=== PATIENT | male | born 1960 | race American Indian/Alaskan Native ===

== ENCOUNTER 2017-01-22 21:23 | Emergency (ER) | payer SELFPAY ==
[2017-01-22] MEDS ORDERED: CATAPRES PO ONE (21:45)
[2017-01-22 22:06] LABS: Hemoglobin 13.5 gm/dl (11.8-15.2); Mean Corpuscular HGB Conc 32 % (32-34); Mean Corpuscular Hemoglobin 29 pg (28-32); Mean Corpuscular Volume 91 fl (84-94); Platelet Count 201 K/mm3 (140-440); Red Blood Count 4.62 M/mm3 (3.65-5.03); Red Cell Distribution Width 14.1 % (13.2-15.2); White Blood Count 6.7 K/mm3 (4.5-11.0)
[2017-01-22 22:16] LABS: INR 1.04 (0.87-1.13)
[2017-01-22 22:17] LABS: Partial Thromboplastin Time 27.5 Sec. (24.2-36.6)
[2017-01-22 22:28] LABS: Alanine Aminotransferase 20 units/L (7-56); Albumin 4.2 g/dL (3.9-5); Albumin/Globulin Ratio 1.2 %; Alkaline Phosphatase 54 units/L (35-129); BUN/Creatinine Ratio 14.16; Blood Urea Nitrogen 17 mg/dL (9-20); Calcium 9.9 mg/dL (8.4-10.2); Carbon Dioxide 28 mmol/L (22-30); Glucose 89 mg/dL (75-100); Total Protein 7.8 g/dL (6.3-8.2)
[2017-01-22 22:29] LABS: Anion Gap 17 mmol/L; Chloride 102.1 mmol/L (98-107); Potassium 3.9 mmol/L (3.6-5.0); Sodium 143 mmol/L (137-145)
[2017-01-23 02:08] VITALS: BP 148/86
--- NOTE | 2017-01-23 03:28 | Emergency Department Report ---
HPI - General Chief Complaint: Extremity Injury, Lower Time Seen by Provider: 01/23/17 03:13 - HPI HPI: Room 18 The patient is a 56-year-old male presenting with a chief complaint of anterior thigh numbness bilaterally. The patient states he was working on floors using kneepads and was on his knees extended period time today. Patient states today at noon he noticed numbness in both legs at the anterior thighs. Patient denied ever having dysarthria or dysphagia. Patient denies paresthesia elsewhere in his body. Patient denies ever having weakness. Patient denies abdominal pain Location: Bilateral thighs Duration:, Since since noon Quality: Numbness Severity: Moderate Modifying factors: [see above] Context: [see above] Mode of transportation: Unknown ED Past Medical Hx - Past Medical History Previous Medical History?: Yes Additional medical history: DVT right lower extremity approximately 2013 no longer on anticoagulation. - Surgical History Past Surgical History?: No - Family History Family history: no significant - Social History Smoking Status: Never Smoker Substance Use Type: None (denies illicit drug use) ED Review of Systems ROS: Stated complaint: NUMBNESS IN THIGH Other details as noted in HPI Comment: All other systems reviewed and negative Constitutional: denies: chills, fever Eyes: denies: eye pain, eye discharge, vision change ENT: denies: ear pain, throat pain Respiratory: denies: cough, shortness of breath, wheezing Cardiovascular: denies: chest pain, palpitations Endocrine: no symptoms reported Gastrointestinal: denies: abdominal pain, nausea, diarrhea Genitourinary: denies: urgency, dysuria Musculoskeletal: denies: back pain, joint swelling, arthralgia Skin: denies: rash, lesions Neurological: paresthesias. denies: weakness Psychiatric: denies: anxiety, depression Hematological/Lymphatic: denies: easy bleeding, easy bruising Physical Exam - Physical Exam Vital Signs: Vital Signs 01/22/17 01/23/17 01/23/17 21:31 02:07 02:11 Temperature 98.7 F Pulse Rate 62 52 L Respiratory 17 16 16 Rate Blood Pressure 185/114 Blood Pressure 148/86 [Left] O2 Sat by Pulse 99 100 100 Oximetry Physical Exam: GENERAL: The patient is well-developed well-nourished []. [] HEENT: Normocephalic. Atraumatic. Extraocular motions are intact. Patient has moist mucous membranes. NECK: Supple. Trachea midline CHEST/LUNGS: Clear to auscultation. There is no respiratory distress noted. 2 + DP bilaterally HEART/CARDIOVASCULAR: Regular. There is no tachycardia. There is no gallop rub or murmur. ABDOMEN: Abdomen is soft, nontender. Patient has normal bowel sounds. There is no abdominal distention. SKIN: There is no rash. There is no edema. There is no diaphoresis. NEURO: The patient is awake, alert, and oriented. The patient is cooperative. Cranial nerves II through XII grossly intact, no drift. [employer] 5+/5 bilaterally. Moves all extremities well. Normal sensation bilateral upper extremities. There is a focal region numbness of both anterior thighs approximately 14 cm in diameter and 30 cm in length. The patient has normal sensation all around outside of these regions. The patient has normal speech MUSCULOSKELETAL: There is no evidence of acute injury. ED Course Vital Signs 01/22/17 01/23/17 01/23/17 21:31 02:07 02:11 Temperature 98.7 F Pulse Rate 62 52 L Respiratory 17 16 16 Rate Blood Pressure 185/114 Blood Pressure 148/86 [Left] O2 Sat by Pulse 99 100 100 Oximetry ED Medical Decision Making - Lab Data Result diagrams: 01/22/17 21:54 01/22/17 21:54 Laboratory Tests 01/22/17 01/22/17 01/22/17 21:54 21:54 21:54 WBC 6.7 RBC 4.62 Hgb 13.5 Hct 42.0 MCV 91 MCH 29 MCHC 32 RDW 14.1 Plt Count 201 PT 13.5 INR 1.04 APTT 27.5 D-Dimer < 135.00 Sodium 143 Potassium 3.9 Chloride 102.1 Carbon Dioxide 28 Anion Gap 17 BUN 17 Creatinine 1.2 Estimated GFR > 60 BUN/Creatinine Ratio 14.16 Glucose 89 Calcium 9.9 Total Bilirubin 0.50 AST 25 ALT 20 Alkaline Phosphatase 54 Total Creatine Kinase Total Protein 7.8 Albumin 4.2 Albumin/Globulin Ratio 1.2 01/22/17 21:54 WBC RBC Hgb Hct MCV MCH MCHC RDW Plt Count PT INR APTT D-Dimer Sodium Potassium Chloride Carbon Dioxide Anion Gap BUN Creatinine Estimated GFR BUN/Creatinine Ratio Glucose Calcium Total Bilirubin AST ALT Alkaline Phosphatase Total Creatine Kinase 905 H Total Protein Albumin Albumin/Globulin Ratio - Differential Diagnosis DVTs, rhabdomyolysis, polymyositis, CVA Critical care attestation.: If time is entered above; I have spent that time in minutes in the direct care of this critically ill patient, excluding procedure time. ED Disposition Clinical Impression: Numbness of left anterior thigh, Numbness of right anterior thigh, Elevated CK Disposition: - TO HOME OR SELFCARE Is pt being admited?: No Does the pt Need Aspirin: No Condition: Stable Instructions: Neurapraxia (ED) Additional Instructions: Return to the emergency department immediately should you develop worsening symptoms, fever, inability to tolerate food or liquid or any other concerns. Referrals: [facility] [Outside] - 3-5 Days CARLOS AL MD [Staff Physician] - 3-5 Days (Dr. Al is a neurologist. Please follow up with him for further evaluation) JAVIER FITZGERALD MD [Staff Physician] - 3-5 Days (Dr. Fitzgerald is a primary physician. Please follow up with him to be established as a patient) Time of Disposition: 03:31
== END 2017-01-23 03:30 | disposition home or self-care (01) ==
LOC: ED 21:23
DX: R20.0 Anesthesia of skin (principal); R74.8 Abnormal levels of other serum enzymes
CPT/HCPCS: 36415; 80053; 82550; 85027; 85379; 85610; 85730; 99283

== ENCOUNTER 2019-05-08 12:01 | Emergency (ER) | payer SELFPAY | END 2019-05-08 13:14 | disposition home or self-care (01) | LOC: ED 12:01 ==

== ENCOUNTER 2020-11-03 10:29 | Emergency (ER) | payer SELFPAY ==
[2020-11-03] MEDS ORDERED: cloNIDine 0.1 MG TAB PO ONE (11:09)
--- NOTE | 2020-11-03 11:12 | Emergency Department Report ---
ED General Adult HPI - General Chief complaint: High BP Stated complaint: ELEVATED BLOOD PRESSURE Time Seen by Provider: 11/03/20 11:03 Source: patient Mode of arrival: Ambulatory Limitations: No Limitations - History of Present Illness Initial comments: Mr. Pastor is a 60 years old male with history of hypertension, noncompliant with his medication. Patient stated that he was taking amlodipine 5mg but he did not have any follow-up with his primary doctor since COVID-19 started. Patient stated that he has some dental work and found that his blood pressure was 175/92 and he was sent to the ER for further management. Patient stated that he is having mild headache and some dizziness but denied any weakness, numbness or tingling sensation. No bowel or bladder incontinence. Patient also denied any chest pain or shortness of breath. - Related Data Home Medications Medication Instructions Recorded Confirmed Last Taken amLODIPine 5 mg PO DAILY 11/03/20 11/03/20 1 Day Ago ~11/02/20 Previous Rx's Medication Instructions Recorded Last Taken Type amLODIPine 10 mg PO DAILY #30 tab 11/03/20 Unknown Rx Allergies Allergy/AdvReac Type Severity Reaction Status Date / Time No Known Allergies Allergy Verified 11/03/20 11:19 ED Review of Systems ROS: Stated complaint: ELEVATED BLOOD PRESSURE Other details as noted in HPI Comment: All other systems reviewed and negative Constitutional: denies: chills, fever Respiratory: denies: cough, shortness of breath, SOB with exertion Cardiovascular: denies: chest pain Gastrointestinal: denies: abdominal pain, nausea, vomiting Musculoskeletal: denies: back pain Neurological: headache. denies: weakness, numbness, paresthesias, confusion, abnormal gait ED Past Medical Hx - Past Medical History Previous Medical History?: Yes Hx Hypertension: Yes Additional medical history: DVT right lower extremity approximately 2013 no longer on anticoagulation. - Social History Smoking Status: Never Smoker Substance Use Type: None - Medications Home Medications: Home Medications Medication Instructions Recorded Confirmed Last Taken Type amLODIPine 5 mg PO DAILY 11/03/20 11/03/20 1 Day Ago History ~11/02/20 amLODIPine 10 mg PO DAILY #30 tab 11/03/20 Unknown Rx ED Physical Exam - General Limitations: No Limitations General appearance: alert, in no apparent distress - Head Head exam: Present: atraumatic, normocephalic, normal inspection - Eye Eye exam: Present: normal appearance, PERRL - ENT ENT exam: Present: normal exam, normal orophraynx, mucous membranes moist - Neck Neck exam: Present: normal inspection, full ROM. Absent: tenderness, meningismus - Respiratory Respiratory exam: Present: normal lung sounds bilaterally - Cardiovascular Cardiovascular Exam: Present: regular rate, normal rhythm, normal heart sounds - GI/Abdominal GI/Abdominal exam: Present: soft, normal bowel sounds. Absent: distended, tenderness, guarding, rebound, rigid, organomegaly, mass, bruit, pulsatile mass, hernia - Extremities Exam Extremities exam: Present: normal inspection, full ROM, normal capillary refill. Absent: pedal edema, calf tenderness - Back Exam Back exam: Present: normal inspection, full ROM. Absent: CVA tenderness (R), CVA tenderness (L) - Neurological Exam Neurological exam: Present: alert, oriented X3, CN II-XII intact, normal gait, reflexes normal. Absent: motor sensory deficit - Psychiatric Psychiatric exam: Present: normal mood - Skin Skin exam: Present: warm, intact, normal color ED Course Vital Signs 11/03/20 11/03/20 11/03/20 10:59 11:26 11:29 Temperature 98 F Pulse Rate 64 68 Respiratory 16 Rate Blood Pressure 175/95 168/98 O2 Sat by Pulse 98 98 Oximetry 11/03/20 11/03/20 11/03/20 11:30 12:13 12:15 Temperature Pulse Rate Respiratory Rate Blood Pressure 168/98 168/98 146/79 O2 Sat by Pulse 98 100 100 Oximetry ED Medical Decision Making - Lab Data Result diagrams: 11/03/20 11:43 11/03/20 11:43 - Medical Decision Making Mr. Pastor is a 60 years old male with history of hypertension, noncompliant with his medication. Patient stated that he was taking amlodipine 5mg but he did not have any follow-up with his primary doctor since COVID-19 started. Patient stated that he has some dental work and found that his blood pressure was 175/92 and he was sent to the ER for further management. Patient stated that he is having mild headache and some dizziness but denied any weakness, numbness or tingling sensation. No bowel or bladder incontinence. Patient also denied any chest pain or shortness of breath. Labs reviewed and is unremarkable. Patient received clonidine 0.0 mg. Patient blood pressure now is 146/79. Patient stated that symptoms completely resolved. Patient given amlodipine 10 mg and advised to follow-up with his primary doctor in the next 2 to 3 days and to return to the ER if he develop any new symptoms. Critical care attestation.: If time is entered above; I have spent that time in minutes in the direct care of this critically ill patient, excluding procedure time. ED Disposition Clinical Impression: Malignant hypertension Disposition: DC-01 TO HOME OR SELFCARE Is pt being admited?: No Condition: Stable Instructions: Hypertension (ED), Hypertension, Adult, [id number] Prescriptions: amLODIPine 10 mg PO DAILY #30 tab Referrals: PRIMARY CARE, [Primary Care Provider] - 3-5 Days
[2020-11-03 12:39] LABS: Basophils % (Auto) 0.7 % (0.0-1.8); Eosinophils # (Auto) 0.1 K/mm3 (0.0-0.4); Eosinophils % (Auto) 2.1 % (0.0-4.3); Hematocrit 43.2 % (35.5-45.6); Hemoglobin 14.4 gm/dl (11.8-15.2); Lymphocytes # (Auto) 1.7 K/mm3 (1.2-5.4); Lymphocytes % (Auto) 34.5 % (13.4-35.0); Mean Corpuscular HGB Conc 33 % (32-34); Mean Corpuscular Volume 92 fl (84-94); Monocytes # (Auto) 0.5 K/mm3 (0.0-0.8); Monocytes % (Auto) 11.2 % (0.0-7.3); Platelet Count 204 K/mm3 (140-440); Red Blood Count 4.71 M/mm3 (3.65-5.03); Red Cell Distribution Width 13.8 % (13.2-15.2)
[2020-11-03 12:55] LABS: BUN/Creatinine Ratio 14; Blood Urea Nitrogen 15 mg/dL (9-20); Calcium 9.6 mg/dL (8.4-10.2); Hemolysis Index 6
[2020-11-03 13:10] VITALS: BP 140/87
== END 2020-11-03 13:10 | disposition home or self-care (01) ==
LOC: ED 10:29
DX: I10 Essential (primary) hypertension (principal); R51.9 Headache, unspecified; R42 Dizziness and giddiness; Z79.899 Other long term (current) drug therapy
CPT/HCPCS: 36415; 80048; 85025; 99283